=== PATIENT | female | born 2000 ===

== ENCOUNTER 2021-11-28 07:14 | Emergency (ER) | payer SELFPAY ==
[2021-11-28] MEDS ORDERED: BENZONATATE200 MG PO (09:18)
== END 2021-11-28 09:24 | disposition home or self-care (01) ==
LOC: ER1 07:14
DX: U07.1 COVID-19 (principal); J40 Bronchitis, not specified as acute or chronic; J06.9 Acute upper respiratory infection, unspecified
CPT/HCPCS: 0240U; 71045; 87081; 87880; 99283